=== PATIENT | female | born 1995 | race Caucasian/White ===

== ENCOUNTER 2023-03-04 07:32 | Inpatient (IN) ==
[2023-03-04] MEDS ORDERED: OXYTOCIN 30 UNITS/500 ML BAG IV PRN ×3 (07:44→22:22)
[2023-03-04] MEDS ORDERED: LIDOCAINE 1% LOCAL 20 ML VIAL INFIL PRN (07:44)
[2023-03-04 08:35] LABS: Hematocrit (blood only) 38.9 % (37.0-47.0); Hemoglobin 13.6 g/dl (12.0-16.0); Mean Corpuscular Hemoglobin 31.8 pg (25.0-34.0); Mean Corpuscular Volume 90.9 fL (80.0-100.0); Platelet Count 213 K/uL (130-400); RDW Coefficient of Variation 12.8 % (11.5-14.5); RDW Standard Deviation 42.1 fL (36.4-46.3); Red Blood Count 4.28 M/uL (4.20-5.40); White Blood Count 7.62 K/ul (4.8-10.8)
[2023-03-04] MEDS: LACTATED RINGER'S 1,000 ML IV PRN ×2 (14:06→15:02)
[2023-03-04] MEDS ORDERED: ePHEDrine sulfate 50 MG/ML AMP ONE (14:23)
[2023-03-04] MEDS ORDERED: fentaNYL citrate PF 100 MCG/2 ML VIAL ONE (14:24)
[2023-03-04] MEDS ORDERED: LIDOCAINE 2%/EPINEPHRINE 1:200,000 20 ML PF ONE (14:24)
[2023-03-04] MEDS ORDERED: SODIUM CHLORIDE 0.9% PF INJ 10 ML VIAL ONE (14:24)
[2023-03-04] MEDS ORDERED: fentaNYL 2MCG/ML ROPIVACAINE 1.25MG/ML 100 ML BAG EPI ONE (14:24)
[2023-03-04] MEDS ORDERED: BUPIVACAINE 0.25% PF 30 ML VIAL ONE (14:24)
--- NOTE | 2023-03-04 14:37 | Anesthesiology Consultation ---
Date of Service March 04, 2023 Assessment & Plan (1) Encounter for pre-operative examination: Chart Review Chart Review: Acceptable Risk for Labor Epidural History Height/Weight Height: 5 ft 4 in Weight: 66.678 kg Allergies Allergy/AdvReac Type Severity Reaction Status Date / Time No Known Allergies Allergy Verified 03/03/23 15:35 Medications Home Medications Medication Instructions Recorded Confirmed Last Taken doxylamine succinate 25 mg tablet 25 mg PO Q6H PRN Sleep 07/30/22 03/04/23 Unknown (Unisom (doxylamine)) omega-3 fatty acids [Fish Oil] PO 07/30/22 03/03/23 03/04/23 06:00 prenat.vits,danyell,lxf-jdgb-lkzqk 1 tab PO DAILY 07/30/22 03/03/23 03/04/23 06:00 pyridoxine (vitamin B6) PO 07/30/22 03/03/23 03/04/23 06:00 Active Medications Generic Name Dose Route Start Last Admin Trade Name Freq PRN Reason Stop Dose Admin Lactated Ringer's 1,000 mls @ 125 mls/hr 03/04/23 07:44 03/04/23 14:06 Lr IV 03/06/23 07:43 999 mls/hr .Q8H PRN Administration L&D Protocol Protocol Past Medical History Medical History (Updated 03/04/23 @ 14:37 by Doug Delgado MD) No pertinent past medical history Past Surgical History Surgical History S/P wisdom tooth extraction Social History Smoking Status: Never smoker Do You Dip or Chew Tobacco: No Hx Alcohol Use: No Hx Substance Use: No Physical Exam Vital Signs Last Vital Signs Temp 36.8 C 03/04/23 12:50 Pulse 81 03/04/23 14:31 Resp 18 03/04/23 07:47 BP 125/58 L 03/04/23 14:26 Pulse Ox 98 03/04/23 14:31 Testing Laboratory Results 03/04/23 07:59
[2023-03-04] MEDS ORDERED: ePHEDrine sulfate 50 MG/ML AMP IV PRN (15:11)
[2023-03-04] MEDS ORDERED: NALOXONE HCL 1 MG in SODIUM CHLORIDE 0.9% 1000ML 1,000 ML IV PRN (15:11)
[2023-03-04] MEDS ORDERED: SODIUM CHLORIDE 0.9% PF INJ 10 ML VIAL EPI STA (15:11)
[2023-03-04] MEDS ORDERED: SODIUM CHLORIDE 0.9% PF INJ 10 ML VIAL EPI PRN (15:11)
[2023-03-04] MEDS ORDERED: ONDANSETRON INJ 2 MG/ML 2 ML VIAL IV PRN (15:11)
[2023-03-04] MEDS ORDERED: BUPIVACAINE 0.25% PF 30 ML VIAL EPI PRN (15:11)
[2023-03-04] MEDS ORDERED: BUPIVACAINE 0.25% PF 30 ML VIAL EPI STA (15:11)
[2023-03-04] MEDS ORDERED: fentaNYL citrate PF 100 MCG/2 ML VIAL EPI STA (15:11)
[2023-03-04] MEDS ORDERED: ROPIVACAINE 0.5% PF 5 MG/ML 20 ML VIAL EPI PRN (15:11)
[2023-03-04] MEDS ORDERED: LIDOCAINE 2%/EPINEPHRINE 1:200,000 20 ML PF EPI STA (15:11)
[2023-03-04] MEDS ORDERED: NALOXONE HCL 0.4 MG/1 ML VIAL/CARP IV PRN (15:11)
[2023-03-04] MEDS ORDERED: fentaNYL citrate PF 100 MCG/2 ML VIAL EPI PRN (15:11)
[2023-03-04] MEDS ORDERED: fentaNYL 2MCG/ML ROPIVACAINE 1.25MG/ML 100 ML BAG EPI PRN (15:11)
[2023-03-04] MEDS ORDERED: LIDOCAINE 2% MPF LOCAL 5 ML VIAL EPI PRN (15:11)
--- NOTE | 2023-03-04 15:35 | History & Physical Report ---
Date of Service March 04, 2023 Assessment & Plan (1) IUGR (intrauterine growth restriction) affecting care of mother: Plan: G1, P0 female who presents at 39-1/7 weeks with history of IUGR for induction of labor. Membranes were ruptured for a large amount of clear fluid. Will initiate Pitocin augmentation if needed. Epidural analgesia when requested. Anticipate vaginal . Admission and Anticipated Discharge Date Admission Date: March 04, 2023 History of Present Illness Primary Care Provider: NO PCP Patient is a 27-year-old 1 para 0 female EDC 03/10/2023 who presents at 39-1/7 weeks for induction of labor because of IUGR. testing has been reassuring however the day prior to the induction, uterine artery Doppler was at 97th percentile. GBS is negative. Allergies Allergy/AdvReac Type Severity Reaction Status Date / Time No Known Allergies Allergy Verified 03/03/23 15:35 Home Medications Medication Instructions Recorded Confirmed Type doxylamine succinate 25 mg tablet 25 mg PO Q6H PRN Sleep 07/30/22 03/04/23 History (Unisom (doxylamine)) omega-3 fatty acids [Fish Oil] PO 07/30/22 03/03/23 History prenat.vits,danyell,qaj-iafy-yddaw 1 tab PO DAILY 07/30/22 03/03/23 History pyridoxine (vitamin B6) PO 07/30/22 03/03/23 History Patient History Medical History (Updated 03/04/23 @ 14:37 by Doug Delgado MD) No pertinent past medical history Surgical History S/P wisdom tooth extraction Social History Smoking Status: Never smoker Second Hand Exposure: No; Do You Dip or Chew Tobacco: No; Tobacco Cessation Education Requested by Patient: No Hx Alcohol Use: No Hx Substance Use: No Preferred Language: Tuvaluan Field Operations Supervisor Required: No Beliefs That Will Affect Care: None marital status: marital status details: Marvin (29) [phone] Current Living Situation: Spouse Current Living Situation Comment: Marvin- current occupational status: employed current occupation: Teacher. Other Information That Helps Us Care for You: No Feels Safe at Home: Yes Safety Concerns: Feels Safe At This Time Assistive Devices: None Review of Systems All systems reviewed & are unremarkable except as noted in HPI & below Physical Exam Constitutional: WD/WN, vitals as above Psychiatric: A+Ox3, euthymic affect Genitourinary: OB Exam Abdomen: + vertex, + estimated weight (5-6 pounds) and + irregular contractions Manual OB Exam: + cervical dilation 4 cm, + cervical effacement 80% and + station -1 OB Exam Monitor Tracing: + external FHT monitor used, + external uterine monitor used, + category I and + normal FHT variability Results & Data Vital Signs (Past 12 Hours) Vital Signs Temp Pulse Resp BP Pulse Ox 03/04/23 15:29 99 H 115/62 03/04/23 15:26 98 H 99 03/04/23 15:27 99 H 110/62 03/04/23 15:25 97 H 121/68 03/04/23 15:23 81 127/69 03/04/23 15:21 92 H 132/63 99 03/04/23 15:19 97 H 120/60 03/04/23 15:17 95 H 120/63 03/04/23 15:16 101 H 99 03/04/23 15:15 84 119/60 03/04/23 15:13 85 114/56 L 03/04/23 15:11 90 115/70 98 03/04/23 15:09 73 116/59 L 03/04/23 15:07 76 111/59 L 03/04/23 15:06 76 97 03/04/23 15:05 86 112/70 03/04/23 15:04 88 109/69 03/04/23 15:01 87 111/67 98 03/04/23 14:56 96 H 100 03/04/23 14:55 99 H 134/70 03/04/23 14:50 98.1 F 03/04/23 14:51 73 100 03/04/23 14:46 72 100 03/04/23 14:41 77 100 03/04/23 14:40 71 125/68 03/04/23 14:36 81 99 03/04/23 14:31 81 98 03/04/23 14:26 100 03/04/23 14:26 67 03/04/23 14:26 76 125/58 L 03/04/23 14:21 82 100 03/04/23 14:04 77 120/72 03/04/23 12:50 98.2 F 03/04/23 11:57 81 125/74 03/04/23 10:50 98.1 F 03/04/23 10:29 92 H 122/73 03/04/23 08:50 98.8 F 03/04/23 07:52 85 134/82 03/04/23 07:47 98.8 F 85 18 134/82 Code Status & VTE Plan VTE Prophylaxis Plan VTE Prophylaxis will be ordered: No Coding Level of Care Code None Diagnoses IUGR (intrauterine growth restriction) affecting care of mother O36.5990
[2023-03-04] MEDS ORDERED: oxyCODONE/ACETAMINOPHEN 5mg/325mg TAB PO PRN (22:22)
[2023-03-04] MEDS ORDERED: HYDROCORTISONE ACETATE 25 MG SUPP PR PRN (22:22)
[2023-03-04] MEDS ORDERED: ACETAMINOPHEN 325 MG TAB PO PRN (22:22)
[2023-03-04] MEDS ORDERED: BENZOCAINE 20% AER SPR 82.5 GM CAN EXT PRN (22:22)
[2023-03-04] MEDS ORDERED: DIPHTHERIA/TETANUS/PERTUSSIS Vaccine (Tdap, Age 7+yrs) 0.5mL SYR/VL IM ONE (22:22)
--- NOTE | 2023-03-04 22:50 | Delivery Summary ---
Vaginal Delivery Summary Date of Service March 04, 2023 Vaginal Delivery Summary and 1st Degree LAC Patient is a 27-year-old primigravida female who presents for induction of labor because of IUGR. Induction was begun with rupture membranes for clear fluid. She requested epidural analgesia which was effective and she progressed to full dilation. She pushed effectively over intact perineum for delivery of a viable male . After the head was delivered there was a tight nuchal cord which was clamped and cut prior to delivering the rest of the . Rest the infant delivered easily and was placed on the mother's abdomen for further attention and drying. After cord blood was obtained, the placenta was expressed intact with a three-vessel cord. First-degree vaginal laceration was repaired with 3-0 chromic in usual fashion. bleeding was controlled with fundal massage and dilute Pitocin. Estimated blood loss 200 cc. Mother and were doing well after delivery. [facility] [place] Vaginal Delivery Charge Delivery Type Details: and 1st Degree LAC
[2023-03-05] MEDS: IBUPROFEN 600 MG TAB PO PRN ×5 (03:09→22:50)
[2023-03-05 07:45] LABS: Hematocrit (blood only) 33.4 % (37.0-47.0); Hemoglobin 11.7 g/dl (12.0-16.0); Mean Corpuscular Hemoglobin 31.4 pg (25.0-34.0); Mean Corpuscular Volume 89.5 fL (80.0-100.0); Platelet Count 182 K/uL (130-400); RDW Coefficient of Variation 12.8 % (11.5-14.5); RDW Standard Deviation 41.3 fL (36.4-46.3); Red Blood Count 3.73 M/uL (4.20-5.40); White Blood Count 13.39 K/ul (4.8-10.8)
[2023-03-05] MEDS: PRENATAL VITAMIN 1 TAB PO SCH (08:21)
[2023-03-05] MEDS: DOCUSATE SODIUM 100 MG CAP PO SCH ×2 (08:21→20:28)
--- NOTE | 2023-03-05 09:03 | Obstetrical Progress Note ---
Date of Service March 05, 2023 Assessment & Plan (1) Encounter for care and examination after delivery: satisfactory exam continue current care plan Subjective Ambulation: ambulating normally Voiding: no voiding problems Passing Gas:: Yes Diet Tolerance:: regular diet Lochia:: Moderate Feeding Type:: breast feeding some cramping but manageable. passed a small clot early this morning. none since Review of Systems All systems reviewed & are unremarkable except as noted in HPI & below Physical Exam Constitutional WD/WN, vitals as above Genitourinary OB Exam Abdomen: + fundal height Fundus: + firm and + relation to umbilicus (at U) Results & Data Vital Signs (Past 12 Hours) Vital Signs Temp Pulse Pulse Resp BP BP Pulse Ox 03/05/23 03:45 97.9 F 74 16 107/69 97 03/05/23 01:30 98.2 F 84 18 103/65 96 03/04/23 23:00 18 03/04/23 22:30 98.6 F 18 03/05/23 00:30 96 H 129/65 03/05/23 00:15 92 H 118/60 03/05/23 00:01 98 H 132/59 L 03/04/23 23:46 100 H 139/63 03/04/23 23:31 102 H 195/73 H 03/04/23 23:15 89 112/59 L 03/04/23 23:00 91 H 128/60 03/04/23 22:45 129/62 03/04/23 22:30 90 132/67 03/04/23 22:15 107 H 154/71 H 03/04/23 22:03 89 136/60 03/04/23 21:29 84 93 03/04/23 21:26 73 97 03/04/23 21:21 90 95 03/04/23 21:20 101 H 91 03/04/23 21:16 76 90 03/04/23 21:14 90 94 03/04/23 21:11 73 97 03/04/23 21:06 75 95 03/04/23 21:05 83 92 O2 Del Method 03/05/23 03:45 Room Air 03/05/23 01:30 Room Air 03/04/23 23:00 03/04/23 22:30 03/05/23 00:30 03/05/23 00:15 03/05/23 00:01 03/04/23 23:46 03/04/23 23:31 03/04/23 23:15 03/04/23 23:00 03/04/23 22:45 03/04/23 22:30 03/04/23 22:15 03/04/23 22:03 03/04/23 21:29 03/04/23 21:26 03/04/23 21:21 03/04/23 21:20 03/04/23 21:16 03/04/23 21:14 03/04/23 21:11 03/04/23 21:06 03/04/23 21:05
--- NOTE | 2023-03-05 09:42 | Anesthesia Procedure Note ---
Date of Service March 05, 2023 Anesthesia Post Epidural Note Vital Signs Vital Signs: Temp Pulse Resp BP Pulse Ox O2 Del Method 36.6 C 74 16 107/69 97 Room Air 03/05/23 03:45 03/05/23 03:45 03/05/23 03:45 03/05/23 03:45 03/05/23 03:45 03/05/23 03:45 Pain Intensity Lower Abdomen: Pain Intensity: 2 Notes Mental Status: alert / awake / arousable Nausea / Vomiting: adequately controlled Pain: adequately controlled Airway Patency, RR, SpO2: stable & adequate BP & HR: stable & adequate Hydration State: stable & adequate Neuraxial Anesthesia: was administered and sensory block is resolving Anesthetic Complications: no major complications apparent Epidural: Removed without complications and With tip intact
[2023-03-05] MEDS ORDERED: bisacodyL 5 MG TABEC PO SCH (20:00)
[2023-03-06] MEDS ORDERED: bisacodyL 10 MG SUPP PR PRN
[2023-03-06 06:51] LABS: Hematocrit (blood only) 34.3 % (37.0-47.0)
--- NOTE | 2023-03-06 07:10 | Obstetrical Progress Note ---
Date of Service March 06, 2023 Assessment & Plan (1) Encounter for care and examination after delivery: meets criteria home Subjective Ambulation: ambulating normally Voiding: no voiding problems Passing Gas:: Yes Diet Tolerance:: regular diet Lochia:: Small Feeding Type:: breast feeding Results & Data Vital Signs (Past 12 Hours) Vital Signs Temp Pulse Resp BP Pulse Ox O2 Del Method 03/05/23 20:30 98.2 F 76 18 115/73 97 Room Air 03/05/23 23:13 97.9 F 77 18 108/66 94 Room Air
[2023-03-06] MEDS: IBUPROFEN 600 MG TAB PO PRN (08:18)
[2023-03-06] MEDS: DOCUSATE SODIUM 100 MG CAP PO SCH (08:18)
[2023-03-06] MEDS: PRENATAL VITAMIN 1 TAB PO SCH (08:18)
== END 2023-03-06 13:10 | disposition home or self-care (01) | DRG 807 ==
LOC: 4S1 07:32 → 4E2 03-05 01:15

== ENCOUNTER 2024-10-30 21:11 | Inpatient (IN) ==
[2024-10-30] MEDS ORDERED: LACTATED RINGER'S 1,000 ML IV PRN (21:45)
[2024-10-30 22:59] LABS: Hematocrit (blood only) 40.7 % (37.0-47.0); Hemoglobin 14.1 g/dl (12.0-16.0); Mean Corpuscular Hemoglobin 31.2 pg (25.0-34.0); Mean Corpuscular Hgb Conc 34.6 g/dL (32.0-36.0); Mean Platelet Volume 10.7 fL (9.4-12.4); Platelet Count 197 K/uL (130-400); RDW Coefficient of Variation 13.1 % (11.5-14.5); RDW Standard Deviation 42.7 fL (36.4-46.3); Red Blood Count 4.52 M/uL (4.20-5.40); White Blood Count 10.83 K/ul (4.8-10.8)
--- NOTE | 2024-10-30 23:15 | History & Physical Report ---
Date of Service October 30, 2024 Assessment & Plan (1) Normal labor: Plan admit, iv, labs. fhts categ 1. anticip soon. Admission and Anticipated Discharge Date Admission Date: October 30, 2024 History of Present Illness Chief Complaint: contractions Primary Care Provider: Grzegorz Duron MD 28yo at 38+wks ega presents to with cc of regular ctx. Patient was 8cm on arrival and admitted in labor, ctx q2-3min.No rom. PNC c/b 1. Concern for septal defect on our anatomy u/s--> nl echo 2. hx of iugr, 32wk efw aga PNL rh pos, ri, gbs neg. OBH: x 1 GYNH: nl paps no stds Allergies Allergy/AdvReac Type Severity Reaction Status Date / Time No Known Allergies Allergy Verified 10/30/24 16:07 Home Medications Medication Instructions Recorded Confirmed Type prenat.vits,danyell,xam-irdq-xviiv 1 tab PO DAILY 07/30/22 10/30/24 History pyridoxine (vitamin B6) 1 tab PO DAILY 04/27/24 10/30/24 History ferrous sulfate [Iron (ferrous 1 tab PO DAILY 05/29/24 10/30/24 History sulfate)] magnesium chloride 1 tab PO DAILY 05/29/24 10/30/24 History Patient History Medical History (Updated 10/30/24 @ 23:14 by Ronna Torres MD, FACOG) Encounter for pre-operative examination IUGR (intrauterine growth restriction) affecting care of mother Surgical History S/P wisdom tooth extraction Social History (Updated 03/27/24 @ 09:52 by Francisca Bean) Smoking Status: Never smoker Second Hand Exposure: No; Do You Dip or Chew Tobacco: No; Hx Alcohol Use: No Hx Substance Use: No Preferred Language: Nepali Communication Ability: Effective Visual Impairment: No Limitations Hearing Ability: Normal Marker Machine Required: No Beliefs That Will Affect Care: None marital status: marital status details: Marvin (31) [phone] Current Living Situation: Spouse Current Living Situation Comment: Marvin- , son, 1 dog current occupational status: employed current occupation: Teacher. Other Information That Helps Us Care for You: No Feels Safe at Home: Yes Safety Concerns: Feels Safe At This Time Assistive Devices: None Review of Systems as per Subjective / HPI Physical Exam Constitutional: WD/WN, vitals as above Gastrointestinal (Abdomen): soft gravid nt efw 6-7# Musculoskeletal: no edema Neurologic: grossly normal Psychiatric: A+Ox3, euthymic affect Genitourinary: Manual OB Exam: + cervical dilation (rim), + cervical effacement 100%, + station + 1 and + amniotic fluid (arom) clear OB Exam Monitor Tracing: + external FHT monitor used (maternal tracing with ctx as pt sitting up, when handheld 150), + external uterine monitor used (q2-3), + category I and + normal FHT variability Results & Data Vital Signs (Past 12 Hours) Vital Signs Temp Pulse Resp BP Pulse Ox 10/30/24 23:07 106 H 97 10/30/24 23:05 102 H 93 10/30/24 23:02 91 H 96 10/30/24 22:57 89 98 10/30/24 22:55 89 93 10/30/24 22:52 89 100 10/30/24 22:47 88 97 10/30/24 22:42 84 97 10/30/24 22:37 81 99 10/30/24 22:32 89 100 10/30/24 22:27 77 99 10/30/24 22:22 76 99 10/30/24 22:17 110 H 99 10/30/24 22:12 80 100 10/30/24 22:07 87 100 10/30/24 22:02 76 100 10/30/24 21:57 84 100 10/30/24 21:52 80 99 10/30/24 21:39 80 139/80 10/30/24 21:26 75 153/83 H 10/30/24 21:26 98.1 F 18 Coding Level of Care Code None Diagnoses Normal labor O80; Z37.9
[2024-10-30] MEDS: OXYTOCIN 30 UNITS/NSS 30 UNITS/500 ML BAG IV PRN (23:29)
[2024-10-30] MEDS: LIDOCAINE 1% LOCAL 20 ML VIAL INFIL PRN (23:30)
--- NOTE | 2024-10-30 23:37 | Delivery Summary ---
Vaginal Delivery Summary Date of Service October 30, 2024 Vaginal Delivery Summary The patient dilated to complete and pushed to deliver a viable male Apgars 8 and 9 via over intact perineum. Mouth and nose bulb suctioned at perineum. Shoulders and body delivered with ease. was vigorous and crying at . Cord clamped at 30 seconds of life and infant to maternal abdomen where the cord was then doubly clamped and cut. Placenta delivered spontaneously and intact, three-vessel cord. Hemostasis achieved with dilute pitocin and uterine massage. Vaginal laceration noted and after 1% local lidocaine injected, was reapproximated with 3-0 vicryl for excellent hemostasis. Cervix and sulci intact. QBL 100 cc. Mother and baby stable in recovery. [facility] Vaginal Delivery Charge Delivery Type Details:
[2024-10-30] MEDS ORDERED: IBUPROFEN 600 MG TAB PO PRN (23:46)
[2024-10-30] MEDS ORDERED: DIPHTHER/TETAN/PERTUS Vaccine (Tdap, Adol/Adult) 0.5mL IM ONE (23:46)
[2024-10-30] MEDS ORDERED: OXYTOCIN 30 UNITS/NSS 30 UNITS/500 ML BAG IV PRN (23:46)
[2024-10-30] MEDS ORDERED: oxyCODONE/ACETAMINOPHEN 5mg/325mg TAB PO PRN (23:46)
[2024-10-30] MEDS ORDERED: HYDROCORTISONE ACETATE 25 MG SUPP PR PRN (23:46)
[2024-10-31] MEDS: ACETAMINOPHEN 325 MG TAB PO PRN (03:48)
[2024-10-31] MEDS: BENZOCAINE 20% SPRY 85 APPLN/85 GM CAN EXT PRN (03:48)
[2024-10-31] MEDS: SODIUM CHLORIDE 0.65% NA SOLN 45 ML (OCEAN) PRN (04:18)
--- NOTE | 2024-10-31 06:54 | Obstetrical Progress Note ---
Date of Service October 31, 2024 Assessment & Plan (1) Vaginal delivery: Plan: 1st PP Day following in 30 years at 38 week POG. Both mom and baby doing well. Continue routine care. May go home by evening, Not sure because of weather condition. Admission and Anticipated Discharge Date Admission Date: October 30, 2024 Supervising Physician Co-Signing Physician Notes Resident Physician Supervision Note: I interviewed and examined the patient. Discussed with Dr. Villanueva and agree with findings and plan as documented in the note. Any exceptions or clarifications are listed here: stable doing well, eating, voiding, ambulating without issue. breast feeding. abd soft ff 2down nt, ext nt calves. ppd#1 s/p . doing well, will consider dc later today, instructions reviewed. f/u 6 wk pp. discussed mood, she has therapist and will let us know of any needs, declines 2wk check in, says she will let us know if issues with mood. Documented By: Ronna Torres MD, FACOG Subjective 1st PP Day following in 30 years at 38 week POG. No active complains Both mom and baby doing well. Pain: Mild, intermittent Lochia: Moderate Diet: Regular Ob diet Gas: Not aware of passing, but no abdominal distension Peeing: Normal, no bladder distension Ambulation: Normally Review of Systems Review of Systems: No SOB, chest pain, leg pain No dizziness, headache, palpitation No Blurring of vision , fever Physical Exam Physical Exam: General: Alert and oriented. No acute distress. CVS: S1 S2+ No murmurs, regular rhythm. Respiratory: CTA bilaterally. No rhonchi, wheezes, or crackles. No increased work of breathing. Abdomen: Bowel sound +. Soft, nontender Uterus: Fundus firm and palpable few cm below the umbilicus. Lower extremities: No LE edema. No deep calf pain. Results & Data Vital Signs (Past 12 Hours) Vital Signs Temp Pulse Pulse Resp BP BP Pulse Ox 10/31/24 03:20 36.6 C 77 18 105/69 95 10/31/24 02:30 18 10/31/24 01:51 101 H 113/67 10/31/24 01:36 88 118/67 10/31/24 01:21 78 112/66 10/31/24 01:10 18 10/31/24 01:06 77 112/67 10/31/24 00:51 71 121/74 10/31/24 00:40 18 10/31/24 00:36 78 114/64 10/31/24 00:25 18 10/31/24 00:21 77 116/64 10/31/24 00:10 18 10/31/24 00:06 78 115/64 10/30/24 23:55 18 10/30/24 23:51 74 116/63 10/30/24 23:40 18 10/30/24 23:37 83 122/63 10/30/24 23:28 61 79 L 10/30/24 23:23 86 92 10/30/24 23:22 83 100 10/30/24 23:18 80 93 10/30/24 23:17 86 96 10/30/24 23:12 106 H 97 10/30/24 23:11 18 10/30/24 23:11 36.9 C 18 10/30/24 23:07 106 H 97 10/30/24 23:05 102 H 93 10/30/24 23:02 91 H 96 10/30/24 22:57 89 98 10/30/24 22:55 89 93 10/30/24 22:52 89 100 10/30/24 22:47 88 97 10/30/24 22:42 84 97 10/30/24 22:37 81 99 10/30/24 22:32 89 100 10/30/24 22:27 77 99 10/30/24 22:22 76 99 10/30/24 22:17 110 H 99 10/30/24 22:12 80 100 10/30/24 22:07 87 100 10/30/24 22:02 76 100 10/30/24 21:57 84 100 10/30/24 21:52 80 99 10/30/24 21:39 80 139/80 10/30/24 21:26 75 153/83 H 10/30/24 21:26 36.7 C 18 O2 Del Method 10/31/24 03:20 Room Air 10/31/24 02:30 10/31/24 01:51 10/31/24 01:36 10/31/24 01:21 10/31/24 01:10 10/31/24 01:06 10/31/24 00:51 10/31/24 00:40 10/31/24 00:36 10/31/24 00:25 10/31/24 00:21 10/31/24 00:10 10/31/24 00:06 10/30/24 23:55 10/30/24 23:51 10/30/24 23:40 10/30/24 23:37 10/30/24 23:28 10/30/24 23:23 10/30/24 23:22 10/30/24 23:18 10/30/24 23:17 10/30/24 23:12 10/30/24 23:11 10/30/24 23:11 10/30/24 23:07 10/30/24 23:05 10/30/24 23:02 10/30/24 22:57 10/30/24 22:55 10/30/24 22:52 10/30/24 22:47 10/30/24 22:42 10/30/24 22:37 10/30/24 22:32 10/30/24 22:27 10/30/24 22:22 10/30/24 22:17 10/30/24 22:12 10/30/24 22:07 10/30/24 22:02 10/30/24 21:57 10/30/24 21:52 10/30/24 21:39 10/30/24 21:26 10/30/24 21:26
[2024-10-31] MEDS: PRENATAL VITAMIN 1 TAB PO SCH (08:36)
[2024-10-31] MEDS: DOCUSATE SODIUM 100 MG CAP PO SCH (08:36)
[2024-10-31] MEDS: guaiFENesin 600 MG TABCR PO SCH (15:12)
[2024-10-31] MEDS: bisacodyL 5 MG TABEC PO SCH (21:13)
[2024-11-01 00:30] VITALS: RESP 16
--- NOTE | 2024-11-01 06:20 | Obstetrical Progress Note ---
Date of Service November 01, 2024 Assessment & Plan (1) Vaginal delivery: Plan: 2nd PP Day following in 30 years at 38 week POG. No new issue, vitals stable Plan: DC today. Admission and Anticipated Discharge Date Admission Date: October 30, 2024 Supervising Physician Co-Signing Physician Notes Resident Physician Supervision Note: I interviewed and examined the patient. Discussed with Dr. Villanueva and agree with findings and plan as documented in the note. Any exceptions or clarifications are listed here: PP2 s/p , doing well. Stable for dc Documented By: Megan Johnston MD Subjective 2nd PP Day following in 30 years at 38 week POG. No active complains Both mom and baby doing well. Pain: Mild, intermittent Lochia: Moderate Diet: Regular Ob diet Gas: Passed Peeing: Normal, no bladder distension Ambulation: Normally Review of Systems Review of Systems: No SOB, chest pain, leg pain No dizziness, headache, palpitation No Blurring of vision , fever Physical Exam Physical Exam: General: Alert and oriented. No acute distress. CVS: S1 S2+ No murmurs, regular rhythm. Respiratory: CTA bilaterally. No rhonchi, wheezes, or crackles. No increased work of breathing. Abdomen: Bowel sound +. Soft, nontender Uterus: Fundus firm and palpable few cm below the umbilicus. Lower extremities: No LE edema. No deep calf pain. Results & Data Vital Signs (Past 12 Hours) Vital Signs Temp Pulse Resp BP Pulse Ox O2 Del Method 10/31/24 23:15 36.8 C 84 16 128/81 96 Room Air 10/31/24 19:20 36.9 C 92 H 18 107/71 96 Room Air Resident Activity Tracking Resident Involvement: Resident Care Provided Care Provided: OB Delivery
[2024-11-01 09:05] VITALS: BP 116/82; PULSE 85; TEMP 97.7; O2SAT 97
== END 2024-11-01 11:15 | disposition home or self-care (01) | DRG 807 ==
LOC: OPB 21:11 → 4S1 21:13 → 4E2 10-31 02:36